=== PATIENT | female | born 1960 | race Caucasian/White ===

== ENCOUNTER 2021-05-16 06:10 | Observation (INO) | payer BC, OTHER ==
[2021-05-15 12:28] LABS: BASOPHILS % 0.7 % (0.0-1.0); EOSINOPHILS # (AUTO) 0.2 (0.0-0.4); EOSINOPHILS % 2.6 % (0.0-6.0); HEMATOCRIT 44.9 % (34.2-44.1); HEMOGLOBIN 14.9 g/dL (12.0-16.0); LYMPHOCYTES # (AUTO) 1.5 (1.0-3.2); LYMPHOCYTES % 26.6 % (18.0-39.1); MEAN CORPUSCULAR HEMOGLOBIN 30.3 pg (28-32); MEAN CORPUSCULAR HGB CONC 33.2 g/dL (31-35); MEAN CORPUSCULAR VOLUME 91.4 fL (81-99); MONOCYTES # (AUTO) 0.7 (0.2-0.8); MONOCYTES % 12.1 % (4.4-11.3); NEUTROPHILS # (AUTO) 3.3 (2.1-6.9); NEUTROPHILS % 57.7 % (38.7-80.0); PLATELET COUNT 220 x10e3/uL (140-360); RED BLOOD COUNT 4.91 x10e6/uL (3.6-5.1); RED CELL DISTRIBUTION WIDTH 13.1 % (11.7-14.4)
[2021-05-15 12:50] LABS: INR 0.92; PROTHROMBIN TIME 12.6 seconds (11.9-14.5)
[2021-05-15 12:51] LABS: PARTIAL THROMBOPLASTIN TIME 26.2 seconds (23.8-35.5)
[2021-05-15 13:00] LABS: ANION GAP 12.8 mmol/L (8-16); CALCIUM 9.3 mg/dL (8.4-10.2); CREATININE, SERUM 0.78 mg/dL (0.57-1.11); POTASSIUM 3.8 mmol/L (3.5-5.1)
[~2021-05-16] VITALS: Ht 162.6 cm; Wt 104.8 kg
[~2021-05-16 06:10] MED LIST: ASPIRIN81 MG PO; MULTI-VITAMIN1 EACH PO; SERTRALINE HCL100 MG PO; SODIUM CHLORIDE 0.9% 50ML 100 ML ONE; TRANEXAMIC ACID 1,000 MG/10 ML ML ONE; Vancomycin IV 0 MG ONE
[2021-05-16] MEDS ORDERED: ROPIVACAINE 246.25 MG, EPINEPHRINE HCL 1:1000 1ML 0.5 MG, CLONIDINE HCL 0.08 MG, KETORO... INJ ONE ×5 (07:30)
[2021-05-16] MEDS ORDERED: MEPERIDINE HCL INJ 25 MG/ML VIAL ONE (08:45)
[2021-05-16] MEDS ORDERED: ONDANSETRON HCL INJ 2MG/ML 2ML 2 MG/ML VIAL ONE (08:49)
[2021-05-16] MEDS ORDERED: KETOROLAC TROMETHAMINE 30 MG/ML VIAL ONE (08:50)
[2021-05-16] MEDS ORDERED: MORPHINE SULFATE INJ 4 MG/ML INJ 1ML ONE (09:27)
[2021-05-16 11:15] VITALS: BP 133/72
[2021-05-16 11:19] VITALS: BP 133/72
[2021-05-16] MEDS ORDERED: LACTATED RINGER'S 1,000 ML INJ SCH (11:30)
[2021-05-16 12:09] VITALS: BP 133/72
[2021-05-16] MEDS ORDERED: HYDROCODONE/APAP 10MG-325MG TAB PO PRN (12:15)
[2021-05-16] MEDS ORDERED: ONDANSETRON HCL INJ 2MG/ML 2ML 2 MG/ML VIAL IV PRN (12:15)
[2021-05-16] MEDS ORDERED: HYDROCODON-ACE1 EAC9 PO (15:38)
[2021-05-16 16:26] VITALS: BP 125/61
== END 2021-05-16 16:55 | disposition home or self-care (01) ==
LOC: OR 06:10 → PACU V 08:44 → MED/SURG 11:04
PROVIDERS: ADMIT Orthopaedic Surgery; ATTEND Orthopaedic Surgery
DX: M17.0 Bilateral primary osteoarthritis of knee (principal); M76.52 Patellar tendinitis, left knee; M70.42 Prepatellar bursitis, left knee; E66.9 Obesity, unspecified; Z68.38 Body mass index [BMI] 38.0-38.9, adult; Z20.822 Contact with and (suspected) exposure to COVID-19; Z96.652 Presence of left artificial knee joint; Z01.818 Encounter for other preprocedural examination
CPT/HCPCS: 27447; 36415; 73560; 80048; 85025; 85610; 85730; 86850; 86900; 86920; 93005; 97110; 97116; 97162; 97530; C1713 ×4; C1776; G0378; J0171; J0690; J1885; J2175; J2270; J2405; J2795; U0002; J3370